=== PATIENT | female | born 1975 | race Caucasian/White ===

== ENCOUNTER 2017-03-02 14:42 | Emergency (ER) | payer BC ==
[~2017-03-02] VITALS: Ht 162.6 cm; Wt 81.6 kg
[2017-03-02 15:10] VITALS: BP 143/92
== END 2017-03-02 16:00 | disposition home or self-care (01) ==
LOC: ER 14:42
DX: F41.9 Anxiety disorder, unspecified (principal); G89.29 Other chronic pain; M54.2 Cervicalgia; M54.9 Dorsalgia, unspecified

== ENCOUNTER 2017-03-07 14:08 | Emergency (ER) | payer BC ==
[~2017-03-07] VITALS: Ht 162.6 cm; Wt 76.2 kg
[2017-03-07 14:15] VITALS: BP 108/78
== END 2017-03-07 16:26 | disposition home or self-care (01) ==
LOC: ER 14:08
DX: F41.9 Anxiety disorder, unspecified (principal); Z76.0 Encounter for issue of repeat prescription

== ENCOUNTER 2022-11-04 20:51 | Emergency (ER) | payer BC ==
[~2022-11-04] VITALS: Ht 160 cm; Wt 78.9 kg
[2022-11-04] MEDS ORDERED: KETOROLAC TROMETH 60MG/2ML VIAL IM ONE (21:15)
[2022-11-04 22:08] VITALS: BP 116/89
== END 2022-11-04 23:04 | disposition home or self-care (01) ==
LOC: ER 20:51
DX: F41.9 Anxiety disorder, unspecified (principal); J34.89 Other specified disorders of nose and nasal sinuses; Z98.890 Other specified postprocedural states
CPT/HCPCS: 96372; 99283; J1885

== ENCOUNTER 2022-11-09 17:37 | Emergency (ER) | payer BC ==
[~2022-11-09] VITALS: Ht 160 cm; Wt 78.6 kg
[2022-11-09 18:27] LABS: Basophils # (auto) 0.1 10 ^3/uL (0-0.2); Eosinophils # (auto) 0.2 10 ^3/uL (0-0.8); Eosinophils % (auto) 1.2 % (0.0-7.0); Hematocrit 41.4 % (36.0-46.0); Lymphocytes # (auto) 3.6 10 ^3/uL (0.4-5.4); Mean Corpuscular Hemoglobin 30.1 pg (28.0-32.0); Mean Corpuscular Hgb Conc. 33.7 g/dL (32.0-36.0); Mean Corpuscular Volume 89.4 fL (80.0-100.0); Monocytes # (auto) 0.9 10 ^3/uL (0-1.3); Monocytes % (auto) 6.6 % (0.0-12.0); Neutrophils # (auto) 8.2 10 ^3/uL (1.6-8.6); Neutrophils % (auto) 63.2 % (37.0-80.0); Nucleated Red Blood Cells % 0.1 %; Red Blood Cells 4.63 10^6/uL (4.0-5.20); Red Cell Distribution Width 14.5 % (11.8-14.3)
[2022-11-09 18:42] LABS: Albumin 4.1 g/dL (3.4-5.0); Calcium 9.2 mg/dL (8.5-10.1)
[2022-11-09 18:44] LABS: Urine Bacteria NONE SEEN /hpf (None Seen); Urine Blood 3+ /uL (Negative); Urine Specific Gravity 1.015 (1.001-1.035); Urine WBC 2 /hpf (0 - 5)
[2022-11-09 18:44] LABS: BUN/Creatinine Ratio 9.1 (10.0-20.0); Bilirubin, Total 0.6 mg/dL (0.2-1.0); Total Protein 7.1 g/dL (6.4-8.2)
[2022-11-09 18:46] LABS: Potassium 2.8 mmol/L (3.5-5.1)
[2022-11-09] MEDS ORDERED: POTASSIUM CHL 20 Meq TABLET PO ONE (19:00)
[2022-11-09] MEDS ORDERED: POTASSIUM CHL 20MEQ/100ML 100 ML IV SCH (20:45)
[2022-11-09] MEDS ORDERED: POTA-220 PO (22:22)
[2022-11-09] MEDS ORDERED: MECL25CH85 PO (22:22)
[2022-11-09] MEDS ORDERED: ZOFR4T PO (22:22)
[2022-11-09 23:20] VITALS: BP 151/82
== END 2022-11-09 23:24 | disposition left against medical advice (07) ==
LOC: ER 17:37
DX: R42 Dizziness and giddiness (principal); E87.6 Hypokalemia; I10 Essential (primary) hypertension; Z53.29 Procedure and treatment not carried out because of patient's decision for other reasons
CPT/HCPCS: 36415; 80053; 81001; 82962; 84484; 85025; 93005

== ENCOUNTER 2023-01-30 10:22 | Emergency (ER) | payer BC ==
[~2023-01-30 10:22] MED LIST: AMLO1TAB22 PO; HYDR-4072 PO; LAMO200T34 PO; LORA2TAB89 PO; LOSA50TA46 PO; MECL25CH85 PO; POTA-220 PO; ZOFR4T PO
== END 2023-01-30 11:37 | disposition left against medical advice (07) ==
LOC: EDBD 10:22 → ER 10:22 → EDUNIT# 10:22 → ER 11:37
DX: F25.9 Schizoaffective disorder, unspecified (principal); E78.5 Hyperlipidemia, unspecified; I10 Essential (primary) hypertension; F17.210 Nicotine dependence, cigarettes, uncomplicated; F12.90 Cannabis use, unspecified, uncomplicated